=== PATIENT | female | born 1995 | race Caucasian/White ===

== ENCOUNTER 2019-05-05 07:28 | Emergency (ER) | payer BC ==
[~2019-05-05] VITALS: Ht 162.6 cm; Wt 59.0 kg
[2019-05-05] MEDS ORDERED: BIRTH CONTROL (07:50)
[2019-05-05 08:32] LABS: ABSOLUTE EOSINOPHILS 0.1 thou/uL (0.0-0.7); ABSOLUTE LYMPHOCYTES 1.8 thou/uL (0.8-5.3); ABSOLUTE MONOCYTES 0.4 thou/uL (0.0-1.2); ABSOLUTE NEUTROPHILS 3.6 thou/uL (1.6-8.1); BASOPHILS 0.7 %; EOSINOPHILS 1.2 %; HEMATOCRIT 39.8 % (37.0-47.0); HEMOGLOBIN 13.8 gm/dL (12.0-15.0); MCH 32.8 pg (26.0-34.0); MCHC 34.6 g/dL (28.0-37.0); MCV 94.7 fL (80.0-100.0); MONOCYTES 6.2 %; MPV 8.6 fl. (7.2-11.1); NUCLEATED RBCS 0 /100WBC; PLATELET COUNT* 195 thou/uL (150-400); POLYS 60.9 %; RDW-CV 12.8 % (10.5-14.5)
[2019-05-05 08:38] LABS: CALCIUM 8.9 mg/dL (8.5-10.1)
[2019-05-05 08:43] LABS: ALBUMIN 3.9 g/dL (3.4-5.0); TOTAL BILIRUBIN 0.7 mg/dL (<0.1-1.0); TOTAL PROTEIN 6.9 g/dL (6.4-8.2)
[2019-05-05 09:37] VITALS: BP 109/62
== END 2019-05-05 09:37 | disposition home or self-care (01) ==
LOC: M.ERS 07:28
PROVIDERS: Family Medicine
DX: H53.8 Other visual disturbances (principal); Z88.5 Allergy status to narcotic agent